=== PATIENT | female | born 1970 | race Caucasian/White ===

== ENCOUNTER 2023-06-09 09:26 | Outpatient (RCR) | payer OTHER, SELFPAY ==
--- NOTE | 2023-06-09 14:06 | ST.OPIE ---
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 Start: 06/09/23 10:35 Freq: Status: Active Protocol: Document 06/09/23 11:20 MA (Rec: 06/09/23 12:14 MA [id number]) Adult Cognitive Linguistic Evaluation Session Time Visit Start Time 09:30 Visit Stop Time 10:30 Total Visit Minutes 60 Visit Information Visit Number 1 Plan of Care Dates 05/10/2023-08/04/23 Referral Referring Provider Aminah Neal Reason for Referral Speech impairment Setting Assessment Location Outpatient Care Visit Type Note Type Initial evaluation Next Note Type Next Note Type Treatment Note Patient Information Identification Type Name Patient History Patient is a 52 year old female seen this date for 1:1 speech evaluation d/t speech impairment. Pt reports she presents today with difficulties speaking, occasional spitting and biting lips/tongue when talking. Pt reports she had double jaw surgery in 2016 in order to align her jaw, however surgery resulted in complicationg. Pt had repeat double jaw surgery in August 2018 to fix issues from first surgery, however also resulted in complications , specifically no upper jaw fusion. 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 Pt reported pain was a 10/10 during that time. Pt saw a operations systems specialist in [place] in September 2019 to repair nerve . Pt reports pain went from a 10 to a 4 after surgery. Hearing Hearing Level Normal Vision Vision Status Not Impaired Previous Therapy Previous Speech-Language Therapy No Subjective Patient Report Patient reports her pain has decreased since nerve repair in 2019, however continues with left sided facial and lingual numbness. Pt reports since initial surgeries in 2016 she has not been able to talk right, specifically talking with jaw deviated to the left, has difficulties singing, can't chew with mouth closed or on left side, occasionally spits when talking and bites lips/tongue. Pt reports this has greatly impacted her quality of life, specifically not wanting to talk on the phone, go out with friends or engage with others . Pain Intensity 4 Pain Scale Used Numeric (0 - 10) Mental Status Alert,Responsive,Cooperative Assessment Oral Motor Examination Completed Yes Results Oral motor exam completed during time of evaluation. Pt with natural dentition, good condition. Jaw deviates to the left. Upper teeth approximates with lower teeth when smiling. Reduced labial strength, protrusion and seal. Labial ROM WFL. Lingual strength and ROM WFL. Reduced sensation left facial, chin, left side tongue and left upper lip. Lingual protrusion and retraction WFL. 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 Pt reports she occasionally bites her tongue/ lips d/t lack of sensation. Informal Assessment Speech Normal Pt 100% intelligible, however occasional imprecise articulation Speech Impairment(s) Imprecise articulation Cognition Normal Yes Formal Assessment Results ST administered the Voice Handicap Index (10), however prompted Pt to score it in regards to speech impairment. Pt scored a total score of 61 indicating a severity rating of severe. Pt scored 22 on functional portion, 11 on physical portion and 28 on emotional portion. Pt chose option always on the following statements: I am tense when talking to others because of my voice, my voice problem upsets me, I am less outgoing because of my voice problem, my voice makes me feel handicapped, I am ashamed of my voice problem, my voice makes me feel incompetent, I am embarrassed when people ask me to report. Pt reports reduced quality of life due to speech impairment and would like to be able to talk on the phone again, socialize with others and not feel self conscious when talking with others. 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 1, characterized by weak labial seal and occasional imprecise articulation. Pt reports lingual nerve cut during surgery, however ST suspects potential trigeminal/facial nerve involvement. Pt may benefit from ST services in order to be educated on use of oral motor exercises and cranial nerves and their functions. ST recommends Pt be referred back to operations systems specialist. Cognitive Communication Deficits Self-awareness of Cognitive- Limited awareness (minimal Communication Deficits appreciation without specificity) Prognosis Prognosis Fair Based on Cognitive status,Family support Plan of Care Speech-Language Treatment Yes Frequency 1x/week 45min Duration 8 weeks Patient/Caregiver Education Described results of evaluation,Patient expressed understanding of evaluation, Patient expressed agreement with goals and treatment plans ,Family/caregivers require further education/training Short Term Goals STG 1. Pt will decrease Voice Handicap Index score from a 61 to a 50 provided compensatory strategies and education to improve quality of life in regards to speech. STG 2. Pt will utilize speaking compensatory strategies at the sentence/ paragraph/conversation level of reduced rate, over articulation in order to imrpove speech intelligibililty. STG 3. Pt will participate in oral motor speech tasks to improve lingual and labial strength, ROM and motility for articulation with min cues. Boarding Specialist Goals LTG 1. Pt will improve intelligibility of speech for functional communication. LTG 2. Pt will decrease Voice Handicap Index score in order to promote increase in quality of life.
--- NOTE | 2023-06-09 14:06 | ST.OPPOC ---
Physical, Occupational & Speech Therapy At [facility] Visit Care Team Role Provider Type AYO Boateng Attending Provider Non-Staff Family Provider Primary Care Provider Referring Provider Address: [address], [address], [place], [address] Speech Pathology Plan of Care Plan of Care Dates 05/10/2023-08/04/23 Referring Provider Aminah Neal Patient History Patient is a 52 year old female seen this date for 1:1 speech evaluation d/t speech impairment. Pt reports she presents today with difficulties speaking, occasional spitting and biting lips/ tongue when talking. Pt reports she had double jaw surgery in 2016 in order to align her jaw, however surgery resulted in complicationg. Pt had repeat double jaw surgery in August 2018 to fix issues from first surgery, however also resulted in complications, specifically no upper jaw fusion. 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 Pt reported pain was a 10/10 during that time. Pt saw a epic willow specialist in [place] in September 2019 to repair nerve. Pt reports pain went from a 10 to a 4 after surgery. Self-awareness of Cognitive- Limited awareness (minima Communication Deficits Short Term Goals STG 1. Pt will decrease Voice Handicap Index score from a 61 to a 50 provided compensatory strategies and education to improve quality of life in regards to speech. STG 2. Pt will utilize speaking compensatory strategies at the sentence/paragraph/ conversation level of reduced rate, over articulation in order to imrpove speech intelligibililty. STG 3. Pt will participate in oral motor speech tasks to improve lingual and labial strength, ROM and motility for articulation with min cues. Penitentiary Goals LTG 1. Pt will improve intelligibility of speech for functional communication. LTG 2. Pt will decrease Voice Handicap Index score in order to promote increase in quality of life. Comment: Electronically Signed by: DOC Eddy 06/09/23 6210 If you are in agreement with this Plan of Care, please return a signed and dated copy. I have reviewed this Plan of Care and certify that the skilled therapy services above are required to meet the patient?s needs. Physician Signature Date Printed Name and Credentials Clinical Instructor Signature Printed Name and Credentials
--- NOTE | 2023-06-13 12:20 | ST.OPIE ---
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 Cognitive Linguistic Eval Start: 06/09/23 10:35 Freq: Status: Active Protocol: Document 06/09/23 11:20 MA (Rec: 06/09/23 12:14 MA [id number]) Adult Cognitive Linguistic Evaluation Session Time Visit Start Time 09:30 Visit Stop Time 10:30 Total Visit Minutes 60 Visit Information Visit Number 1 Plan of Care Dates 05/10/2023-08/04/23 Referral Referring Provider Aminah eNal Reason for Referral Speech impairment Setting Assessment Location Outpatient Care Visit Type Note Type Initial evaluation Next Note Type Next Note Type Treatment Note Patient Information Identification Type Name Patient History Patient is a 52 year old female seen this date for 1:1 speech evaluation d/t speech impairment. Pt reports she presents today with difficulties speaking, occasional spitting and biting lips/tongue when talking. Pt reports she had double jaw surgery in 2016 in order to align her jaw, however surgery resulted in complicationg. Pt had repeat double jaw surgery in August 2018 to fix issues from first surgery, however also resulted in complications , specifically no upper jaw fusion. 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 Pt reported pain was a 10/10 during that time. Pt saw a motor tune up specialist in [place] in September 2019 to repair nerve . Pt reports pain went from a 10 to a 4 after surgery. Hearing Hearing Level Normal Vision Vision Status Not Impaired Previous Therapy Previous Speech-Language Therapy No Subjective Patient Report Patient reports her pain has decreased since nerve repair in 2019, however continues with left sided facial and lingual numbness. Pt reports since initial surgeries in 2016 she has not been able to talk right, specifically talking with jaw deviated to the left, has difficulties singing, can't chew with mouth closed or on left side, occasionally spits when talking and bites lips/tongue. Pt reports this has greatly impacted her quality of life, specifically not wanting to talk on the phone, go out with friends or engage with others . Pain Intensity 4 Pain Scale Used Numeric (0 - 10) Mental Status Alert,Responsive,Cooperative Assessment Oral Motor Examination Completed Yes Results Oral motor exam completed during time of evaluation. Pt with natural dentition, good condition. Jaw deviates to the left. Upper teeth approximates with lower teeth when smiling. Reduced labial strength, protrusion and seal. Labial ROM WFL. Lingual strength and ROM WFL. Reduced sensation left facial, chin, left side tongue and left upper lip. Lingual protrusion and retraction WFL. 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 Pt reports she occasionally bites her tongue/ lips d/t lack of sensation. Informal Assessment Speech Normal Pt 100% intelligible, however occasional imprecise articulation Speech Impairment(s) Imprecise articulation Cognition Normal Yes Formal Assessment Results ST administered the Voice Handicap Index (10), however prompted Pt to score it in regards to speech impairment. Pt scored a total score of 61 indicating a severity rating of severe. Pt scored 22 on functional portion, 11 on physical portion and 28 on emotional portion. Pt chose option always on the following statements: I am tense when talking to others because of my voice, my voice problem upsets me, I am less outgoing because of my voice problem, my voice makes me feel handicapped, I am ashamed of my voice problem, my voice makes me feel incompetent, I am embarrassed when people ask me to report. Pt reports reduced quality of life due to speech impairment and would like to be able to talk on the phone again, socialize with others and not feel self conscious when talking with others. 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 1, characterized by weak labial seal and occasional imprecise articulation. Pt reports lingual nerve cut during surgery, however ST suspects potential trigeminal/facial nerve involvement. Pt may benefit from ST services in order to be educated on use of oral motor exercises and cranial nerves and their functions. ST recommends Pt be referred back to motor tune up specialist. Prognosis Prognosis Fair Based on Cognitive status,Family support Plan of Care Speech-Language Treatment Yes Frequency 1x/week 45min Duration 8 weeks Patient/Caregiver Education Described results of evaluation,Patient expressed understanding of evaluation, Patient expressed agreement with goals and treatment plans ,Family/caregivers require further education/training Short Term Goals STG 1. Pt will decrease Voice Handicap Index score from a 61 to a 50 provided compensatory strategies and education to improve quality of life in regards to speech. STG 2. Pt will utilize speaking compensatory strategies at the sentence/ paragraph/conversation level of reduced rate, over articulation in order to imrpove speech intelligibililty. STG 3. Pt will participate in oral motor speech tasks to improve lingual and labial strength, ROM and motility for articulation with min cues. Halfway Goals LTG 1. Pt will improve intelligibility of speech for functional communication. LTG 2. Pt will decrease Voice Handicap Index score in order to promote increase in quality of life.
--- NOTE | 2023-09-13 13:35 | ST.OPDS ---
Visit Care Team Role Provider Type AYO Boateng Attending Provider Non-Staff Family Provider Primary Care Provider Referring Provider Address: [facility] [address], [address], [place], [address] Pt discharged d/t not returning to therapy.
== END 2023-09-15 10:55 | disposition home or self-care (01) ==
LOC: SP 09:26
PROVIDERS: Family Provider Nurse Practitioner; PCP Nurse Practitioner; Referring Provider Nurse Practitioner; Visit Provider Nurse Practitioner
DX: R47.89 Other speech disturbances (principal)
CPT/HCPCS: 92523